=== PATIENT | male | born 1945 | race Caucasian/White ===

== ENCOUNTER 2016-12-22 14:30 | Day surgery (SDC) | payer OTHER ==
[2016-12-22] MEDS ORDERED: fentaNYL 100 MCG/2 ML INJ IVP ONE (14:49)
[2016-12-22] MEDS ORDERED: ETOMIDATE 20 MG/10 ML VIAL IVP ONE (14:49)
[2016-12-22] MEDS ORDERED: NS 500 ML IV ONE (14:49)
[2016-12-22] MEDS ORDERED: PROPOFOL 200 MG/20 ML VIAL IVP ONE (14:49)
[2016-12-22] MEDS ORDERED: MIDAZOLAM 2 MG/2 ML VIAL IVP ONE (14:49)
--- NOTE | 2016-12-22 15:11 | CPEKG ---
Heart Rate: 128 RR Interval: 469 P-R Interval: 164 QRSD Interval: 100 QT Interval: 320 QTC Interval: 467 P [place]: 223 QRS [place]: 15 T Wave [place]: -44 EKG Severity - ABNORMAL ECG - EKG Impression: Atrial flutter with 2:1 conduction Electronically Signed By: Bonifacio Patton 22-Dec-2016 16:23:01
[2016-12-22 15:43] LABS: APTT 31.6 SEC (23.0-38.0); INR 1.22 (0.83-1.16); PROTIME(PATIENT) 15.4 SEC (12.0-15.0)
[2016-12-22 15:48] LABS: ANION GAP 11 mEq/L (8-16); CALCIUM 9.2 mg/dL (8.5-10.4); CARBON DIOXIDE 26 mEq/l (22-31); CHLORIDE 106 mEq/L (97-110); CREATININE 0.6 mg/dL (0.7-1.3); GLOMERULAR FILTRATION RATE > 60; GLUCOSE 81 mg/dL (70-100); POTASSIUM 4.2 mEq/L (3.5-5.2); SODIUM 143 mEq/L (134-144)
--- NOTE | 2016-12-22 17:14 | SUROPNOTE ---
[facility] Operative Report - Surgery Date of procedure: 12/22/16 Indication: This patient is a 71 year old man, with a history paroxysmal atrial fibrillation and SSS s/p pacemaker placement, presenting with approximately one week of poorly rate controlled paroxysmal atrial fibrillation and atrial flutter , despite Sotalol therapy. Rhythm changes were noted on pacemaker home monitoring. The patient had called the office and spoke with Dr. De La Rosa. He was instructed to add low dose metoprolol to his Sotalol dose (80mg BID), however misunderstood these instructions and discontinued his Sotalol when he began the low dose metoprolol. The patient has been consistently anticoagulated with Pradaxa, 150mg BID. Procedures performed: 1. Cardioversion Description of procedure: Risks, benefits, and alternatives were discussed. Informed consent was obtained. Anesthesia was performed by the anesthesiologist with propofol. Patient received a 70 joule biphasic synchronized shock using hands-off pads converting to sinus rhythm. Impression: 1. Successful cardioversion of atrial flutter to normal sinus rhythm. Plan: 1. Resume 80mg Sotalol BID. 2. Present to the office for daily EKGs. 3. Continue 80mg Sotalol BID through the weekend (approximately the next 5 days ), then up-titrate dose to 120mg BID. Portions of this report were documented by a medical lab technician. I have reviewed this report and agree with the documentation. Report scribed for Dr. Donovan Dyer. Report scribed by Alicia Gar.
--- NOTE | 2016-12-23 08:33 | CPEKG ---
Heart Rate: 75 RR Interval: 800 P-R Interval: 212 QRSD Interval: 108 QT Interval: 404 QTC Interval: 452 QRS [place]: -15 T Wave [place]: -22 EKG Severity - ABNORMAL ECG - EKG Impression: ATRIAL-PACED RHYTHM EKG Impression: INCOMPLETE RIGHT BUNDLE BRANCH BLOCK Electronically Signed By: Bonifacio Patton 23-Dec-2016 09:03:31
== END 2016-12-22 19:16 | disposition home or self-care (01) ==
LOC: FCATH 14:30
PROVIDERS: ATTEND Internal Medicine Interventional Cardiology
PROC: 5A2204Z Restoration of Cardiac Rhythm, Single (ICD-10-PCS; principal; 2016-12-22)
DX: I48.0 Paroxysmal atrial fibrillation (principal); I48.92 Unspecified atrial flutter; Z95.0 Presence of cardiac pacemaker; Z86.73 Personal history of transient ischemic attack (TIA), and cerebral infarction without residual deficits
CPT/HCPCS: J2704

== ENCOUNTER 2016-12-31 10:00 | Day surgery (SDC) | payer OTHER ==
[2016-12-31] MEDS ORDERED: fentaNYL 100 MCG/2 ML INJ IVP ONE (10:16)
[2016-12-31] MEDS ORDERED: NS 500 ML IV ONE (10:16)
[2016-12-31] MEDS ORDERED: MIDAZOLAM 2 MG/2 ML VIAL IVP ONE (10:16)
[2016-12-31] MEDS ORDERED: PROPOFOL 200 MG/20 ML VIAL IVP ONE (10:16)
[2016-12-31] MEDS ORDERED: ETOMIDATE 20 MG/10 ML VIAL IVP ONE (10:16)
--- NOTE | 2016-12-31 10:33 | CPEKG ---
Heart Rate: 100 RR Interval: 600 QRSD Interval: 102 QT Interval: 376 QTC Interval: 485 QRS [place]: -5 T Wave [place]: 7 EKG Severity - ABNORMAL ECG - EKG Impression: AFIB/FLUT AND V-PACED COMPLEXES EKG Impression: MINIMAL ST DEPRESSION, INFERIOR LEADS EKG Impression: BORDERLINE PROLONGED QT INTERVAL Electronically Signed By: Ramesh Gibson 31-Dec-2016 13:09:39
[2016-12-31 11:01] LABS: INR 1.36 (0.83-1.16); PROTIME(PATIENT) 16.8 SEC (12.0-15.0)
[2016-12-31 11:02] LABS: APTT 42.6 SEC (23.0-38.0)
--- NOTE | 2016-12-31 11:03 | CPEKG ---
Heart Rate: 79 RR Interval: 759 P-R Interval: 220 QRSD Interval: 102 QT Interval: 424 QTC Interval: 487 QRS [place]: -11 T Wave [place]: 4 EKG Severity - ABNORMAL ECG - EKG Impression: ATRIAL-PACED RHYTHM EKG Impression: BORDERLINE PROLONGED QT INTERVAL Electronically Signed By: Ramesh Gibson 31-Dec-2016 13:09:13
[2016-12-31 11:18] LABS: ANION GAP 8 mEq/L (8-16); CALCIUM 9.6 mg/dL (8.5-10.4); CARBON DIOXIDE 24 mEq/l (22-31); CHLORIDE 108 mEq/L (97-110); CREATININE 0.7 mg/dL (0.7-1.3); GLOMERULAR FILTRATION RATE > 60; GLUCOSE 96 mg/dL (70-100); MAGNESIUM 2.1 mg/dL (1.6-2.3); POTASSIUM 4.4 mEq/L (3.5-5.2); SODIUM 140 mEq/L (134-144)
--- NOTE | 2016-12-31 17:26 | SUROPNOTE ---
[facility] Operative Report - Surgery Date of procedure: 12/31/16 Indication: This patient is a 71 year old man, with a history of paroxysmal atrial fibrillation and atrial flutter, presenting with recurrent atrial flutter with poorly controlled ventricular rates, despite up-titration to 120mg Sotalol BID. The patient has been consistently anticoagulated with Pradaxa. Plan for cardioversion to convert back to normal sinus rhythm. Procedures performed: 1. Cardioversion Description of procedure: Risks, benefits, and alternatives were discussed. Informed consent was obtained. Anesthesia was performed by Dr. Benítez with propofol. Patient received a 50 joule biphasic synchronized shock using hands-off pads converting to sinus rhythm. Pacemaker interrogation confirmed normal rhythm with adequate atrial pacing. Impression: 1. Successful cardioversion of atrial fibrillation to normal sinus rhythm. Plan: 1. Continue 120mg Sotalol BID 2. Continue Pradaxa anticoagulation 3. Clinical follow up. Portions of this report were documented by a medical front desk coordinator. I have reviewed this report and agree with the documentation. Report scribed for Dr. Donovan Dyer. Report scribed by Alicia Gar.
== END 2016-12-31 12:54 | disposition home or self-care (01) ==
LOC: FCATH 10:00
PROVIDERS: ATTEND Internal Medicine Interventional Cardiology
PROC: 5A2204Z Restoration of Cardiac Rhythm, Single (ICD-10-PCS; principal; 2016-12-31)
DX: I48.92 Unspecified atrial flutter (principal); I48.0 Paroxysmal atrial fibrillation; I10 Essential (primary) hypertension; I49.5 Sick sinus syndrome; Z86.73 Personal history of transient ischemic attack (TIA), and cerebral infarction without residual deficits; Z95.0 Presence of cardiac pacemaker
CPT/HCPCS: J2250; J2704

== ENCOUNTER 2017-03-26 21:11 | Inpatient (IN) | payer OTHER ==
--- NOTE | 2017-03-26 21:48 | CPEKG ---
Heart Rate: 96 RR Interval: 625 P-R Interval: 132 QRSD Interval: 112 QT Interval: 348 QTC Interval: 440 P [place]: -65 QRS [place]: 165 T Wave [place]: 267 EKG Severity - ABNORMAL ECG - EKG Impression: VENTRICULAR-PACED COMPLEXES EKG Impression: NONSPECIFIC INTRAVENTRICULAR CONDUCTION DELAY EKG Impression: BORDERLINE ST DEPRESSION, DIFFUSE LEADS Preliminary Awaiting MD Review
[2017-03-26 23:14] LABS: % IMMATURE GRANULYOCYTES 0.3 % (0.0-1.1); ABSOLUTE IMMATURE GRANULOCYTES 0.02 10^3/uL (0.00-0.10); ADD DIFF? NO; ADD MORPH? NO; ADD SCAN? NO; ATYPICAL LYMPHOCYTE FLAG 10 (0-99); FRAGMENT RBC FLAG 0 (0-99); HEMATOCRIT 43.7 % (40.0-51.0); HEMOGLOBIN 14.4 g/dL (13.7-17.5); LEFT SHIFT FLG 0 (0-99); LIPEMIA HEMOLYSIS FLAG 80 (0-99); MEAN CELL HEMOGLOBIN 32.5 pg (27.9-34.1); MEAN CELL VOLUME 98.6 fL (81.5-99.8); MEAN PLATELET VOLUME 9.3 fL (8.7-11.7); PLATELET CLUMPS FLAG 10 (0-99); PLATELET COUNT 216 10^3/uL (150-400); RED BLOOD CELL COUNT 4.43 10^6/uL (4.40-6.38); RED CELL DISTRIBUTION WIDTH 14.5 % (11.5-15.2)
[2017-03-26 23:19] LABS: ANION GAP 13 mEq/L (8-16); CARBON DIOXIDE 23 mEq/l (22-31); CHLORIDE 104 mEq/L (97-110); CREATININE 0.6 mg/dL (0.7-1.3); ETHANOL SERUM 271 mg/dL (0-10); GLOMERULAR FILTRATION RATE > 60; GLUCOSE 99 mg/dL (70-100); POTASSIUM 4.4 mEq/L (3.5-5.2); SODIUM 140 mEq/L (134-144)
[2017-03-26 23:36] LABS: APTT 30.5 SEC (23.0-38.0); INR 1.12 (0.83-1.16); PROTIME(PATIENT) 14.3 SEC (12.0-15.0)
[2017-03-26] MEDS ORDERED: NS 1,000 ML IV SCH (23:45)
[2017-03-26] MEDS ORDERED: ONDANSETRON 4 MG/2 ML VIAL IVP PRN (23:46)
[2017-03-26] MEDS ORDERED: ONDANSETRON DISINTEGRATING 4 MG TAB PO PRN (23:46)
[2017-03-26] MEDS ORDERED: ACETAMINOPHEN 325 MG TAB PO PRN (23:46)
[2017-03-26] MEDS ORDERED: oxyCODONE IR 5 MG TAB PO PRN (23:46)
--- NOTE | 2017-03-26 23:52 | PDGENHP ---
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 Patient was drinking at the [facility] in [place], had slightly more than his usual amount of etoh intake. On leaving, when trying to walk down the street, he tripped on an uneven sidewalk and fell forward. He denies LOC, but hit his head on the ground from a standing position. He denies any preceding symptoms of chest pain, palpitations, shortness of breath, diaphoresis or lightheadedness. He was helped to his feet by bystanders who then also called EMS. On arrival the ED, patient was afebrile and hemodynamically stable. Labs revealed normal CBC, BMP and elevated ETOH level. CT head and c-spine were then obtained and CT head was negative for acute hemorrhage, but did reveal evidence of a subacute infarct in the L parietal area. CT c-spine also revealed questionable fracture of the T1 spinous process. Neurology was consulted and given the fact the patient is on systemic anticoagulation, recommended repeat CT head w/wo contrast in the AM. He was then placed in a C-collar and admitted to the hospitalist service for further management. History Information - Allergies/Home Medication List Allergies/Adverse Reactions: No Known Allergies Allergy (Unverified 03/26/17 21:30) Home Medications: Metoprolol Tartrate 12/22/16 [Last Taken Unknown] I have personally reviewed and updated: family history, medical history, social history, surgical history - Past Medical History Additional medical history: chronic atrial fibrillation. ? CVA 01/2015, no residual deficits. osteoarthritis - Surgical History Additional surgical history: L total knee replacement. ventral hernia repair. L femoral fracture repair - Family History Positive for: non-pertinent (both parents lived into late 80s, no known cardiac family history ) - Social History Smoking Status: Current every day smoker Alcohol Use: Heavy (2-3 pints beer/day) Drug Use: None Additional social history: Pt originally from [place], recently moved to [place] as his daughter lives here. Lives alone, is independent in ADLs. 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 Review of Systems ROS: 10pt was reviewed & negative except for what was stated in HPI & below Physical Exam Temp Pulse Resp BP Pulse Ox 36.4 C 87 16 132/93 H 95 03/26/17 21:31 03/26/17 21:31 03/26/17 21:31 03/26/17 21:31 03/26/17 21:31 Constitutional: no apparent distress, not in pain, obese, unkempt Eyes: PERRL, anicteric sclera, EOMI Ears, Nose, Mouth, Throat: moist mucous membranes, hearing normal, ears appear normal, no oral mucosal ulcers, poor dentition Cardiovascular: irregularly irregular, pulses symmetric bilaterally, No JVD, No edema Peripheral Pulses: 2+: dorsalis-pedis (R), dorsalis-pedis (L) Respiratory: no respiratory distress, no rales or rhonchi, clear to auscultation Gastrointestinal: normoactive bowel sounds, soft, non-tender abdomen, no palpable masses, No guarding, No rebound, No distension Genitourinary: no bladder fullness, no bladder tenderness Skin: warm, normal color, abrasion (multiple abrasions on his bilateral upper and lower extremities, laceration on L palmar surface of hand), No mottled Musculoskeletal: full muscle strength, no muscle tenderness, normal joint ROM, no joint effusions Neurologic: AAOx3, sensation intact bilaterally, CN II-XII Intact, No weakness, No numbness, No pronator drift, No facial droop Psychiatric: interacting appropriately, not anxious, not encephalopathic, other (intoxicated but not encephalopathic) Lab Data & Imaging Review 03/27/17 04:33 03/27/17 04:33 WBC 7.24 10^3/uL (3.80-9.50) 03/26/17 21:15 RBC 4.43 10^6/uL (4.40-6.38) 03/26/17 21:15 Hgb 14.4 g/dL (13.7-17.5) 03/26/17 21:15 Hct 43.7 % (40.0-51.0) 03/26/17 21:15 MCV 98.6 fL (81.5-99.8) 03/26/17 21:15 MCH 32.5 pg (27.9-34.1) 03/26/17 21:15 MCHC 33.0 g/dL (32.4-36.7) 03/26/17 21:15 RDW 14.5 % (11.5-15.2) 03/26/17 21:15 Plt Count 216 10^3/uL (150-400) 03/26/17 21:15 MPV 9.3 fL (8.7-11.7) 03/26/17 21:15 Neut % (Auto) 45.5 % (39.3-74.2) 03/26/17 21:15 Lymph % (Auto) 43.5 % (15.0-45.0) 03/26/17 21:15 [place] % (Auto) 7.0 % (4.5-13.0) 03/26/17 21:15 Eos % (Auto) 2.9 % (0.6-7.6) 03/26/17 21:15 Baso % (Auto) 0.8 % (0.3-1.7) 03/26/17 21:15 Nucleat RBC Rel Count 0.0 % (0.0-0.2) 03/26/17 21:15 Absolute Neuts (auto) 3.29 10^3/uL (1.70-6.50) 03/26/17 21:15 Absolute Lymphs (auto) 3.15 10^3/uL (1.00-3.00) H 03/26/17 21:15 Absolute Monos (auto) 0.51 10^3/uL (0.30-0.80) 03/26/17 21:15 Absolute Eos (auto) 0.21 10^3/uL (0.03-0.40) 03/26/17 21:15 Absolute Basos (auto) 0.06 10^3/uL (0.02-0.10) 03/26/17 21:15 Absolute Nucleated RBC 0.00 10^3/uL (0-0.01) 03/26/17 21:15 Immature Gran % 0.3 % (0.0-1.1) 03/26/17 21:15 Immature Gran # 0.02 10^3/uL (0.00-0.10) 03/26/17 21:15 PT 14.3 SEC (12.0-15.0) 03/26/17 21:15 INR 1.12 (0.83-1.16) 03/26/17 21:15 APTT 30.5 SEC (23.0-38.0) 03/26/17 21:15 Sodium 140 mEq/L (134-144) 03/26/17 21:15 Potassium 4.4 mEq/L (3.5-5.2) 03/26/17 21:15 Chloride 104 mEq/L (97-110) 03/26/17 21:15 Carbon Dioxide 23 mEq/l (22-31) 03/26/17 21:15 Anion Gap 13 mEq/L (8-16) 03/26/17 21:15 BUN 8 mg/dL (7-23) 03/26/17 21:15 Creatinine 0.6 mg/dL (0.7-1.3) L 03/26/17 21:15 Estimated GFR > 60 03/26/17 21:15 Glucose 99 mg/dL (70-100) 03/26/17 21:15 Calcium 9.0 mg/dL (8.5-10.4) 03/26/17 21:15 Ethyl Alcohol 271 mg/dL (0-10) H 03/26/17 21:15 Visualized and Interpreted imaging results: Yes Interpretation: CT head/c-spine: no acute intracranial hemorrhage; subacute L parietal infarct; cannot rule out T1 spinous process fracture; diffuse degenerative changes Visualized and Interpreted EKG results: Yes EKG additional interpertation: V-paced rhythm; no obvious ischemic changes Assessment & Plan Assessment: Pt is 71/M with chronic Afib on coumadin for anticoagulation who presents to the ED after a mechanical fall resulting in head trauma. ED evaluation is negative for acute intracranial hemorrhage, but CT does reveal a subacute vs chronic L parietal infarct. Plan: # fall Appears to have been mechanical in etiology due to walking on uneven surface while intoxicated. Physical exam is without any neuro deficits, VS stable, trop neg and EKG shows paced rhythm. Can have PPM interrogated to r/o arrhythmia. Will also r/o acs with serial troponins, monitor for falls, obtain PT/OT eval. # subacute L parietal infarct Subacute infarct seen on CT wo contrast. Patient cannot remember a time of focal neurologic loss/deficit, and he does not have any obvious deficits on exam today, although exam is limited by acute etoh intoxication. [facility] neurology was contacted by ED, recommend repeat CT head w and wo contrast in AM. # chronic atrial fibrillation Rate controlled on presentation. Will cont home meds once confirmed. Hold anticoagulation in setting of acute fall with head trauma. # acute alcohol intoxication, chronic ETOH use Hemodynamically stable. Will give gentle IVF hydration x [address] on CIWA. # dispo: admit to inpt service for > 2 MN stay # gen: cardiac diet DVT ppx: hold pradaxa x 24 hours until repeat imaging Full code
--- NOTE | 2017-03-27 | EDPHY ---
H & P Smoking Status: Current every day smoker Time Seen by Provider: 03/26/17 21:31 HPI/ROS: CHIEF COMPLAINT: Head injury HISTORY OF PRESENT ILLNESS: 72-year-old male presents to the emergency department after having witnessed fall. Patient states that he tripped over the curb and fell and hit his head. He has a history of atrial fibrillation and has a pacemaker and is on Pradaxa. Currently the patient has no complaints. He denies feeling dizzy or having any presyncopal symptoms prior to his fall. He denies chest pain or difficulty breathing. Denies abdominal pain. No vomiting or diarrhea. Sustained multiple abrasions. He denies paresthesias in his upper lower extremities. He believes his tetanus shot is current. Denies abdominal pain. REVIEW OF SYSTEMS: Constitutional: No fever, no chills. Eyes: No double or blurry vision. ENT: No sore throat. Respiratory: No cough, no shortness of breath. Cardiac: No chest pain. Gastrointestinal: No abdominal pain, vomiting or diarrhea. Genitourinary: No dysuria. Musculoskeletal: No neck or back pain. Skin: Abrasions. No rashes. Neurological: No headache. (Batsheva Hannon) Past Medical/Surgical History: Atrial fibrillation with tachy-rain syndrome status post pacemaker, cardioversion, ETOH abuse, anemia, orthopedic surgery, ventral hernia repair ( Batsheva Hannon) Social History: Single and lives independently (Batsheva Hannon) Physical Exam: General Appearance: Alert, no distress. 132/93, heart rate 87, 95% on room air , temperature 36.4 the patient is in no apparent distress. He is answering questions appropriately. He smells of alcohol. Eyes: Pupils equal and round. Extraocular motions are all intact. ENT: Mouth: Mucous membranes moist. No dental injury or malocclusion. Respiratory: No wheezing, rhonchi, or rales, lungs are clear to auscultation. Cardiovascular: Regular rate and rhythm. Gastrointestinal: Abdomen is soft and nontender, no masses, no rebound or guarding, bowel sounds normal. Neurological: Alert and oriented x 3, cranial nerves II through XII grossly intact Skin: Superficial abrasion to the right anterior aspect of the forehead. Superficial abrasions to bilateral anterior knees. There is a small 2 cm laceration to the palmar aspect of the left hand near the base of the 3rd digit overlying MCP joint. No active bleeding noted. No palpable bony tenderness. Full range of motion of his fingers. Warm and dry, no rashes. Musculoskeletal: Nontender to palpate along the cervical, thoracic or lumbar spine. Neck is supple. Extremities: Full range of motion and no peripheral edema. Well-healed surgical scar noted to the anterior aspect of the left knee. Psychiatric: Patient is oriented X 3, there is no agitation. (Batsheva Hannon) Constitutional: Initial Vital Signs Temperature (C) 36.4 C 03/26/17 21:31 Heart Rate 87 03/26/17 21:31 Respiratory Rate 16 03/26/17 21:31 Blood Pressure 132/93 H 03/26/17 21:31 O2 Sat (%) 95 03/26/17 21:31 O2 Delivery Mode Room Air Allergies/Adverse Reactions: No Known Allergies Allergy (Unverified 03/26/17 21:30) Home Medications: Medication Instructions Recorded Dabigatran Etexilate Mesyl 150 mg PO BID #0 cap 10/19/16 [Pradaxa 150 MG (*)] Sotalol HCl [Betapace 80 MG (*)] 80 mg PO BID #0 tab 10/19/16 Acetaminophen [Tylenol 325mg (*)] 650 mg PO DAILY 03/27/17 Medical Decision Making - Diagnostics Imaging: Discussed imaging studies w/ [employer] Radiologist Procedures: Laceration repair. Verbal consent was obtained from the patient. The 2 cm laceration on the left palm was anesthetized using 1% lidocaine with epinephrine. The wound was irrigated with saline, draped and explored to its base with a gloved finger. There were no deep structures involved. No tendon injury was identified. The wound was repaired with 4 0 Ethilon, 3 sutures. The wound repair was simple. The procedure was performed by myself. (Batsheva Hannon) ED Course/Re-evaluation: 72-year-old male presents to the emergency department after having a witnessed fall hitting his head. The patient has history of atrial fibrillation and has a pacemaker and is on Pradaxa. I explained to the patient that I was very concerned about possible bleeding in his brain. He agreed with CT scan. CT imaging of the head and cervical spine reveal probable subacute infarction involving the left parietal cortex/sub cortex. Possible T1 spinous process injury noted. This is likely subacute. Unable to obtain MRI due to patient's pacemaker. The patient was placed in a cervical collar. I spoke with Dr. Juancarlos Cadet, on-call [facility] neurologist, who agreed with repeating CT scan in the morning both without and with contrast of the brain. He recommended holding the Pradaxa dose for tonight and then they will decide based on scans in the morning if he needs to hold this medication for a longer period of time. The patient will be admitted to the hospitalist, Dr. Zuniga. Laceration to the left hand was repaired, see procedure note. The case was discussed with Dr. Miles Coley, secondary supervising physician , who did not directly evaluate the patient but agrees with treatment and plan. He does not feel the patient needs to be seen by trauma surgery as he he is not being admitted for intracranial bleeding. (Batsheva Hannon) Differential Diagnosis: Head injury including but not limited to concussion, skull fracture, intraparenchymal contusion, subarachnoid, subdural and epidural hematoma. (Batsheva Hannon) - Data Points Laboratory Results: Laboratory Results 03/26/17 21:15 03/26/17 21:15 Medications Given: Discontinued Medications Folic Acid (Folic Acid) 1 mg PO DAILY [facility] Stop: 09/23/17 08:59 Last Admin: 03/27/17 08:45 Dose: 1 mg Multivitamins (Tab-A-Imelda) 1 each PO DAILY [facility] Stop: 09/23/17 08:59 Last Admin: 03/27/17 08:44 Dose: 1 each Sotalol HCl (Betapace) 80 mg PO BID M[facility] Stop: 09/23/17 11:44 Last Admin: 03/27/17 12:28 Dose: 80 mg Thiamine HCl (Vitamin B-1) 100 mg PO DAILY [facility] Stop: 09/23/17 08:59 Last Admin: 03/27/17 08:45 Dose: 100 mg Departure - Departure Disposition: [facility] Acute Clinical Impression: Multiple abrasions, Multiple contusions, subacute infarct left parietal cortex/ subcort Laceration of left hand Qualifiers: Encounter type: initial encounter Foreign body presence: without foreign body Qualified Code(s): S61.412A - Laceration without foreign body of left hand, initial encounter Condition: Good
[2017-03-27 07:33] LABS: COLOR YELLOW; LEUKOCYTE ESTERASE,URINE NEGATIVE (NEGATIVE); NITRITE,URINE NEGATIVE (NEGATIVE)
[2017-03-27 07:52] LABS: % IMMATURE GRANULYOCYTES 0.6 % (0.0-1.1); ABSOLUTE IMMATURE GRANULOCYTES 0.03 10^3/uL (0.00-0.10); ADD DIFF? NO; ADD MORPH? NO; ADD SCAN? NO; ATYPICAL LYMPHOCYTE FLAG 20 (0-99); FRAGMENT RBC FLAG 10 (0-99); HEMATOCRIT 38.8 % (40.0-51.0); LEFT SHIFT FLG 0 (0-99); LIPEMIA HEMOLYSIS FLAG 80 (0-99); MEAN CELL HEMOGLOBIN 32.6 pg (27.9-34.1); MEAN CELL HEMOGLOBIN CONCENTR. 33.5 g/dL (32.4-36.7); MEAN CELL VOLUME 97.2 fL (81.5-99.8); MEAN PLATELET VOLUME 8.8 fL (8.7-11.7); PLATELET CLUMPS FLAG 0 (0-99); PLATELET COUNT 208 10^3/uL (150-400); RED BLOOD CELL COUNT 3.99 10^6/uL (4.40-6.38); RED CELL DISTRIBUTION WIDTH 14.3 % (11.5-15.2)
[2017-03-27 07:59] LABS: INR 1.15 (0.83-1.16); PROTIME(PATIENT) 14.7 SEC (12.0-15.0)
[2017-03-27 08:00] LABS: APTT 31.5 SEC (23.0-38.0)
[2017-03-27] MEDS ORDERED: IOPAMIDOL (ISOVUE-300) 100 ML BTL ONE (08:00)
[2017-03-27 08:13] VITALS: TEMP 97.9
[2017-03-27 08:14] LABS: ALANINE AMINOTRANSFERASE 24 IU/L (21-72); ALBUMIN 3.5 g/dL (3.5-5.0); ALKALINE PHOSPHATASE 197 IU/L (38-126); ANION GAP 12 mEq/L (8-16); ASPARTATE AMINOTRANSFERASE 22 IU/L (17-59); BILIRUBIN,TOTAL 0.6 mg/dL (0.1-1.4); CALCIUM 8.5 mg/dL (8.5-10.4); CARBON DIOXIDE 21 mEq/l (22-31); CHLORIDE 113 mEq/L (97-110); CHOLESTEROL 123 mg/dL (140-220); CREATINE KINASE-MB FRACTION 1.51 ng/mL (0-3.19); CREATININE 0.5 mg/dL (0.7-1.3); GLOMERULAR FILTRATION RATE > 60; GLUCOSE 83 mg/dL (70-100); HIGH DENSITY LIPOPROTEIN 44 mg/dL (40-65); LDL/HDL RATIO 1.39 RATIO (1.00-3.64); LOW DENSITY LIPOPROTEIN 61 mg/dL (80-100); NON-HIGH DENSITY LIPOPROTEIN 79 mg/dL (90-129); POTASSIUM 4.1 mEq/L (3.5-5.2); SODIUM 146 mEq/L (134-144); TOTAL PROTEIN 6.3 g/dL (6.3-8.2); TRIGLYCERIDE 93 mg/dL (40-150); TROPONIN I < 0.012 ng/mL (0-0.034); VERY LOW DENSITY LIPOPROTEINS 18 mg/dL (8-25)
[2017-03-27] MEDS ORDERED: chlordiazePOXIDE 25 MG CAP PO PRN (08:59)
[2017-03-27] MEDS ORDERED: LORazepam 2 MG/ML INJ IVP PRN (08:59)
[2017-03-27] MEDS ORDERED: THIAMINE HCL 100 MG TAB PO SCH (09:00)
[2017-03-27] MEDS ORDERED: FOLIC ACID 1 MG TAB PO SCH (09:00)
[2017-03-27] MEDS ORDERED: MULTIVITAMINS 1 EACH TAB PO SCH (09:00)
--- NOTE | 2017-03-27 10:16 | SOAPPROG ---
SOAP Progress Note Assessment/Plan: Assessment: Plan: Subjective: asked to clear c spine. pt denies neck tenderness, c collar removed. no pain to palpation. ct scan shows no acute injury. question of radha shovelrs fx raised, but pt is non tender over c6,7 posterior spineprocess, so i doubt this. c spine cleared, collar removed. Objective: Vital Signs Temp Pulse Resp BP Pulse Ox 36.6 C 87 16 119/85 H 93 03/27/17 08:00 03/27/17 08:00 03/27/17 08:00 03/27/17 08:00 03/27/17 08:00 Laboratory Results 03/27/17 04:33 03/27/17 04:33 PT 14.7 SEC (12.0-15.0) 03/27/17 04:33 INR 1.15 (0.83-1.16) 03/27/17 04:33 ICD10 Worksheet Patient Problems: Problems Problem Status Onset Laceration of left hand Acute Multiple abrasions Acute Multiple contusions Acute Anticoagulated Acute Chronic atrial fibrillation Acute Subtrochanteric fracture Acute
[2017-03-27 10:48] LABS: MAGNESIUM 2.1 mg/dL (1.6-2.3)
[2017-03-27] MEDS ORDERED: SOTALOL HCL 80 MG TAB PO SCH (11:45)
[2017-03-27 12:27] VITALS: BP 142/91; PULSE 92; RESP 20; O2SAT 94
--- NOTE | 2017-03-27 12:28 | CPEKG ---
Heart Rate: 112 RR Interval: 536 P-R Interval: 136 QRSD Interval: 98 QT Interval: 348 QTC Interval: 475 P [place]: 224 QRS [place]: 17 T Wave [place]: -54 EKG Severity - ABNORMAL ECG - EKG Impression: VENTRICULAR-PACED COMPLEXES EKG Impression: NONSPECIFIC T ABNORMALITIES, DIFFUSE LEADS Electronically Signed By: Tamra Painting 27-Mar-2017 19:33:22
--- NOTE | 2017-03-27 15:08 | GCON ---
[f rep st] CONSULTATION NEUROLOGY CONSULTATION DATE OF CONSULTATION: 03/27/2017 REFERRING PHYSICIAN: Inez Rodriguez MD BILLING INFORMATION: Seventy-seven total minutes on floor time today, reviewing imaging in detail, testing history, and discussing imaging with Radiology in light of his clinical history. Over 50% was in direct counseling with the patient regarding diagnosis and plan. HISTORY OF PRESENT ILLNESS: The patient is a very pleasant 72-year-old gentleman who is a heavy drinker. He has had injuries related to intoxication in the past. Yesterday, he was drinking beer at the [place] more than usual and tripped on the sidewalk and hit his head on the ground. EMS was activated and he was brought to the ER. He had lacerations that needed to be addressed and had a head CT of the C-spine and head CT per trauma protocol. The head CT showed a questionable subacute versus chronic left parietal infarct. Therefore, a Neurology consultation was obtained. He is on Pradaxa b.i.d. for atrial fibrillation. The patient states in 2014 he had a left hemisphere infarct characterized by aphasia which resolved. On my review the imaging, the characteristics are consistent with a chronic infarct, likely the event from 2014. Indeed, there were no focal neurologic symptoms with this hospitalization such as aphasia or right-sided motor or sensory symptoms referable to that CT abnormality. REVIEW OF SYSTEMS: A 10-point review of system was done; only pertinent to the HPI. PAST MEDICAL HISTORY: Please see Dr. Rodriguez's note. FAMILY HISTORY: Please see Dr. Rodriguez's note. SOCIAL HISTORY: Please see Dr. Rodriguez's note. MEDICATIONS: Please see Dr. Rodriguez's note. ALLERGIES: No known drug allergies. PHYSICAL EXAM: VITAL SIGNS: He is afebrile at 36.6, blood pressure 119/85, heart rate 87. GENERAL: In no acute distress. Very pleasant. NEUROLOGIC: Higher mental function: He has no aphasia now. Cranial nerve exam normal II through VII and XII. Motor exam: Normal strength, tone, reflexes throughout. Sensory exam: Normal to light touch in all 4 extremities. Coordination: Normal in upper and lower extremities. IMPRESSION AND PLAN: 1. Chronic left parietal infarct. 2. Atrial fibrillation on oral anticoagulation. 3. Status post fall from alcohol intoxication with probable concussion. The head CT finding is consistent with a chronic left parietal infarct, consistent with this history of a left hemisphere infarct in 2015. Therefore, there is no contraindication to continuing Pradaxa for his atrial fibrillation for stroke prophylaxis. He can restart that as soon as possible. This was discussed with Dr. oH, his primary hospitalist. No further stroke workup needs to be done now, as he has not had any symptoms / evidence of a new neurovascular event. The patient did fall with intoxication and had a head injury. He likely has some [id number] cognitive deficits from concussion and baseline cognitive deficits from his chronic alcohol use. Discussed at length with the patient. He has been seen by Therapies who agree and have arranged and made recommendations for outpatient therapies. From my standpoint, he can discharge when cleared by Internal Medicine and Therapies. No further recommendations. We will sign off and follow up as needed. Please do not hesitate to call if there are any questions about this very pleasant patient or changes in neurologic status. /[id number]/MODL MTDD
--- NOTE | 2017-03-27 16:33 | GDS ---
[f rep st] DISCHARGE SUMMARY DISCHARGE DIAGNOSES: Include: 1. Subacute left parietal infarct. 2. Acute alcohol intoxication with fall and head trauma. 3. History of atrial fibrillation, status post ablation. 4. History of cerebrovascular accident in January of 2015. 5. Osteoarthritis. 6. Permanent pacemaker. HISTORY OF PRESENT ILLNESS: A 72-year-old male who presented to the emergency department acutely in toxicated on alcohol, with a fall from standing and head trauma. For details of the patient's initi al presentation, please see the history and physical dated 03/26/2017. CONSULTATIVE SERVICES: Include: 1. Trauma Surgery. 2. Neurology. PROCEDURES: On 03/26/2017, patient had a CT of the head that showed subacute infarction of the left parietal cortex and subcortex. 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 On 03/27/20, patient had a CTA of the head that showed old infarction of the left parietal lesion, with subse quent encephalomalacia and no posttraumatic hemorrhage. HOSPITAL COURSE BY ISSUE: 1. Acute intoxication with head trauma. The patient had CT imaging of the head which showed no sub dural bleeds or injuries; however, a subacute stroke. The patient was admitted, had a C-collar plac ed as he was too intoxicated to clearly communicate his symptoms. He was cleared by Trauma Surgery the morning after presentation. He does have excoriations of his right forehead, but his neurologic exam now, less intoxicated, is normal. 2. Subacute left parietal stroke. It appears based on reference imaging that this is consistent wi th the patient's CVA from 2014. There was no new bleeding, edema, or changes at this lesion. The p atient was seen by Neurology, who cleared him for re-initiation of his chronic anticoagulation. He can follow long-term with his outpatient primary care doc and continue his appropriate home medicati ons for cerebrovascular disease. 3. Atrial fibrillation, status post permanent pacemaker. The patient chronically takes Pradaxa, as well as sotalol. Followed closely by Dr. De La Rosa in the outpatient setting. 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 4. Acute alcohol intoxication. It does sound like the patient is a daily alcohol consumer. Did lópez scuss the risks of alcoholic intoxication and recurrent traumatic injuries. The patient did not dev elop alcohol withdrawal during this stay. He reflected insight related to his alcohol abuse and ove [facility] health status. 5. Normocytic anemia. I suspect some of the drop we saw was from hemoconcentration of fluid resusc itation. The patient can follow in the outpatient setting. MEDICATIONS AT TIME OF DISPOSITION: Please reference med rec printed on 03/27/2017. FOLLOWUP APPOINTMENTS: Include: 1. Primary care provider in the next 2-3 weeks post disposition. 2. With Dr. De La Rosa from Cardiology for ongoing management of his outpatient atrial fibrillation. We did make recommendations related to alcohol cessation post disposition. PENDING STUDIES: At the time of this dictation are none. TIME SPENT: I spent greater than 30 minutes in the planning and coordination of this discharge. /[id number]
== END 2017-03-27 16:23 | disposition home or self-care (01) | DRG 605 ==
LOC: EDUNIT# → OBSVTOIN 23:19 → F3N 03-27 00:48
PROVIDERS: ADMIT Internal Medicine; ATTEND Hospitalist
PROC: 0HQGXZZ Repair Left Hand Skin, External Approach (ICD-10-PCS; principal; 2017-03-26)
DX: S00.83XA Contusion of other part of head, initial encounter (principal); S61.412A Laceration without foreign body of left hand, initial encounter; F10.220 Alcohol dependence with intoxication, uncomplicated; I48.2 Chronic atrial fibrillation; W10.1XXA Fall (on)(from) sidewalk curb, initial encounter; Z95.0 Presence of cardiac pacemaker; Z86.73 Personal history of transient ischemic attack (TIA), and cerebral infarction without residual deficits; Z79.01 Long term (current) use of anticoagulants
CPT/HCPCS: 92523-GN; 97116-GP; 97161-GP; 97165-GO; G0397; G0480; G8978-GP-CI; G8979-GP-CI; G8980-GP-CI; G8987-GO-CI; G8988-GO-CH; G8989-GO-CH; G9168-GN-CK; G9169-GN-CI; Q9967

== ENCOUNTER → 2017-07-13 | Outpatient (CLI) | payer OTHER | LOC: BHFA 14:00 | PROVIDERS: ATTEND Internal Medicine Cardiovascular Disease | DX: I48.92 Unspecified atrial flutter (principal) ==

== ENCOUNTER → 2019-02-02 | Outpatient (CLI) | payer OTHER | LOC: BMCIMAGING 15:19 | PROVIDERS: ATTEND Physician Assistant | DX: M17.12 Unilateral primary osteoarthritis, left knee (principal); Z87.828 Personal history of other (healed) physical injury and trauma ==